=== PATIENT | female | born 1940 | race Caucasian/White ===

== ENCOUNTER 2019-04-29 06:14 | Day surgery (SDC) | payer OTHER ==
[~2019-04-29] VITALS: Ht 165.1 cm; Wt 83.2 kg
[~2019-04-29 06:14] MED LIST: SODIUM CHLORIDE 0.9% 1,000 ML IV ONE
[2019-04-29] MEDS ORDERED: BENZOCAINE 20% 50 MCG/SPRAY 57 GM TP ONE (06:15)
[2019-04-29] MEDS ORDERED: EPINEPHrine 1:10,000 [1 MG/10 ML] SYRINGE IVP ONE (06:15)
[2019-04-29] MEDS ORDERED: LIDOCAINE 4% 50 ML SOLUTION TP ONE (06:15)
[2019-04-29] MEDS ORDERED: LIDOCAINE 2% 30 ML JELLY TP ONE (06:15)
[2019-04-29] MEDS ORDERED: SODIUM CHLORIDE 0.9% 1,000 ML ONE (06:35)
[2019-04-29 07:09] LABS: GLUCOMETER DEV NAME(LOC) SDS.; GLUCOSE,POINT OF CARE 178 MG/DL (70-110)
[2019-04-29] MEDS ORDERED: AMLO10TA7 PO (07:41)
[2019-04-29] MEDS ORDERED: FAMO20 PO (07:41)
[2019-04-29] MEDS ORDERED: HYDR25TA PO (07:41)
[2019-04-29] MEDS ORDERED: PRED10 PO (07:41)
[2019-04-29] MEDS ORDERED: ASPI-556 PO (07:41)
[2019-04-29] MEDS ORDERED: LISI-662 PO (07:41)
[2019-04-29] MEDS ORDERED: FLUT1AER8 PO (07:41)
[2019-04-29] MEDS ORDERED: AZIT250T9 PO (07:41)
[2019-04-29] MEDS ORDERED: ESCI10TA PO (07:41)
[2019-04-29] MEDS ORDERED: SAXA2.5T PO (07:41)
[2019-04-29] MEDS ORDERED: TRAZ-252 PO (07:41)
[2019-04-29] MEDS ORDERED: ALBU8HFA IH (07:41)
[2019-04-29] MEDS ORDERED: SIMV-260 PO (07:41)
[2019-04-29] MEDS ORDERED: PROM6.2521 PO (07:41)
[2019-04-29] MEDS ORDERED: MIDAZOLAM HCL 2 MG/2 ML VIAL ONE (07:59)
[2019-04-29] MEDS ORDERED: FentaNYL CITRATE-PF 100 MCG/2 ML VIAL ONE (07:59)
[2019-04-29] MEDS ORDERED: MethylPREDNISolone SOD SUCC 125 MG/2 ML VIAL IVP ONE (08:45)
[2019-04-29] MEDS ORDERED: MethylPREDNISolone SOD SUCC 125 MG/2 ML VIAL ONE (08:49)
[2019-04-29] MEDS ORDERED: OXYGEN THERAPY IH SCH (20:00)
== END 2019-04-29 10:15 | disposition home or self-care (01) ==
LOC: SURGERY 06:14
PROVIDERS: ATTEND Internal Medicine Critical Care Medicine
DX: R05 Cough (principal); J34.89 Other specified disorders of nose and nasal sinuses; J98.8 Other specified respiratory disorders; J38.4 Edema of larynx; B37.0 Candidal stomatitis; I10 Essential (primary) hypertension; E11.9 Type 2 diabetes mellitus without complications; Z87.01 Personal history of pneumonia (recurrent); Z98.890 Other specified postprocedural states; R19.09 Other intra-abdominal and pelvic swelling, mass and lump
CPT/HCPCS: 31623; 31624; 71045; 82962; 87015; 87070; 87101; 87205; 87206; 87220; 88108; 88184; 88185; 88312; J0171; J2250; J2930; J3010; J7030